=== PATIENT | male | born 1975 | race Caucasian/White ===

== ENCOUNTER 2021-08-04 23:41 | Observation (INO) | payer OTHER, SELFPAY ==
[2021-08-04 23:42] VITALS: BP 125/85; PULSE 87; RESP 20; TEMP 36.4; O2SAT 98; BMI 35.2
[2021-08-05] VITALS (14 sets, daily range): BP systolic 121–147; BP diastolic 78–92; PULSE 64–93; RESP 16–20; TEMP 36.2–36.5; O2SAT 88–98; BMI 33.0
--- NOTE | 2021-08-05 | GALL_PTH ---
PATIENT: CHATA WEIR LOC: MS2 U#:[id number] AGE/SX: 46/M ROOM: [facility] [place] RE08/05/[address]: Dr. Guevara Aguilar MD : 1975 BED: 1 DIS: 08/05/2021 SPEC #: [id number] RECD: 08/06/21 10:31 STATUS: MELISSA YANG #: [id number] JOANN: 08/05/21 00:[address]: Guevara Aguilar DEPT: SURGICAL PATHOLOGY RECD BY: Isaac Neal ENTERED: 08/06/21 10:31 SP TYPE: DORIAN SHIELDS DR: No Primary Care Phys Tissues: Gallbladder, NOS Procedures: Surgery Specimen Level III HEADER OPERATION: Laparoscopic cholecystectomy with IOC PRE-OP DIAGNOSIS: Acute cholecystitis TISSUE SUBMITTED: Gallbladder MICROSCOPIC DIAGNOSIS Gallbladder, cholecystectomy: Acute and chronic ulcerated and hemorrhagic cholecystitis and cholelithiasis. A pericystic benign lymph node. SJ:lexie 08/09/2021 MICROSCOPIC DESCRIPTION Slides are reviewed. GROSS DESCRIPTION Received is one container labeled with the patient's name and designated gallbladder. The specimen consists of a gallbladder measuring 11.5 cm in length and 5 cm in diameter. The external surface is pink-mora, smooth and glistening for the most part. Focally it is granular, hemorrhagic and contains cautery artifact. The gallbladder contains a small amount of hemorrhagic mora-yellow mucoid bile and two large ovoid, brown to black stones measuring 3.5 and 2.5 cm in greatest dimension. A few irregular black stones are also noted measuring in aggregate 1 x 1 x 0.2 cm. The mucosa is congested and hemorrhagic. Section of gallbladder wall reveals edematous cut surfaces and it measures up to 1.2 cm in thickness. Also present close to the cystic duct is an ovoid, mora nodule consistent with lymph node measuring 1.5 cm in greatest dimension. Transmitter Chief sections from the gallbladder and the cystic duct including entire lymph node are submitted in two cassettes. / ROBERT:lexie 08/06/21 TC:2 CPT: 39003
--- NOTE | 2021-08-05 00:45 | CT_ITS ---
STUDY: CT ABDOMEN AND PELVIS WITH CONTRAST REASON FOR EXAM: Male, 46 years old. abd pain RADIATION DOSAGE (If Supplied By Facility): CTDIvol = ( 17.31 ) mGy, DLP = ( 1098.41 ) mGycm TECHNIQUE: Transaxial images were obtained from the dome of the diaphragm to the symphysis pubis without oral contrast. IV 100mL Isovue-300 was administered. Sagittal and coronal images were reconstructed. Individualized dose optimization techniques were used for this CT. COMPARISON: None. FINDINGS: The visualized lung bases are unremarkable. The visualized portions of the heart are within normal limits. Normal liver. Distention of the gallbladder with multiple stones in the gallbladder neck. There is pericholecystic inflammation and edema. Findings are suggestive of acute cholecystitis. Largest stone measuring roughly 3.6 x 3.1 cm. Normal spleen. Normal pancreas. Normal bilateral adrenal glands. Normal right kidney. Normal left kidney. Normal visualized stomach. Normal small intestine. Normal colon. The appendix is visualized and appears normal. Normal abdominal aorta. Normal inferior vena cava. Normal retroperitoneum. Normal urinary bladder. Normal visualized prostate gland. Normal abdominal wall. Normal osseous structures. CT/Abdomen/Pelvis W IV Cont ONLY IMPRESSION: Findings compatible with acute cholecystitis as detailed above. No evidence of colitis or diverticulitis Electronically Signed: Josafat Almanza DO at 1:50 EDT Tel , Service support ,
--- NOTE | 2021-08-05 00:45 | ED.VIS.GI ---
HPI HPI - GI History of Present Illness Chief Complaint: Abd Pain Informant: patient and family Narrative Narrative: Patient presents with abdominal pain for about 3 or 4 days. He has mostly across the lower abdomen. And occasionally feels pressure above that but really stays low. He cannot localize to one side. He came in tonight because he had a bowel movement with blood and then had some blood and clots afterwards. He has not repeated this. He does admit that he has been having blood in bowel movements about every fifth bowel movement for several months. He has not been evaluated for this. There is a family history of colon cancer. Patient also states that he tripped and fell on Monday. It was the next day that the symptoms started with discomfort. He does not recall actually hitting the abdomen though. He did not lose consciousness or hurt himself in this fall. It was a mechanical trip and fall and was not syncope. Past medical history: None Medications: None No known drug allergies No abdominal surgeries Works full-time, is a smoker, rarely has any alcohol. He states he has maybe 2 drinks every 5 or 6 months and has not had anything recently. PFSH PFSH Medical History Asthma Smoker Home Medications NK 08/05/21 [History Last Taken Unknown] Allergy/AdvReac Type Severity Reaction Status Date / Time No Known Allergies Allergy Verified 08/04/21 23:42 Social History Smoking Status: Current every day smoker tobacco type: cigarettes ROS ROS ED Constitutional Constitutional ED: Denies chills or fever(s) ENT ENT ED: Denies rhinorrhea or sore throat Cardiovascular Cardiovascular: Denies chest pain or palpitations Respiratory/Chest Respiratory/Chest: Denies cough or dyspnea Gastrointestinal Gastrointestinal: Reports abdominal pain and other Details: See history of present illness. ; Denies constipation, diarrhea, melena, nausea or vomiting Genitourinary Genitourinary ED: Denies dysuria Musculoskeletal Musculoskeletal: Denies arthralgias or myalgias Integumentary Denies rash Neurologic Neurologic: Denies headache(s), paresthesias or weakness Psychiatric Psychiatric: Denies anxiety or depression Endocrine Endocrinology: Denies polydipsia or polyuria Hematologic/Lymphatic Hematologic/Lymphatic: Denies easy bleeding Allergic/Immunologic Allergic/Immunologic ED: Denies urticaria EXAM Physical Exam Const Vital Signs: 08/04/21 23:42 08/05/21 01:02 08/05/21 03:53 Temperature 97.6 F L Temperature Source Temporal Pulse Rate 87 85 68 Respiratory Rate 20 H 16 16 Blood Pressure 125/85 H 138/80 H 126/91 H Blood Pressure Mean 98 99 102 Pulse Ox 98 97 97 Oxygen Delivery Method Room Air Room Air Room Air Positive well developed General Appearance ED: well developed and NAD; Negative for pallor HEENT Reports moist mucous membranes normocephalic and atraumatic Eyes General Eye ED: Negative for pale conjunctiva or scleral icterus Neck no JVD Resp normal respiratory effort and clear to auscultation bilaterally Resp Narrative: No pain with a deep breath. Auscultation: Negative for rales, rhonchi or wheezes Cardio regular rate, regular rhythm and no murmurs GI non-distended GI Narrative: Abdomen is very minimal lower abdominal tenderness. No rebound or guarding. No masses felt. Auscultation: normoactive bowel sounds Palpation: soft Back/Spine no CVA tenderness Extremity full ROM General Extremety ED: Negative for edema or tenderness General Extremity: Negative for edema Neuro Sensorium / Orientation: alert; Negative for confused or lethargic Psych mental status grossly normal Skin General Skin Exam: Negative for jaundice or pallor Lesions: no lesions Rashes: no rashes MDM MDM MDM Narrative Medical decision making narrative: Patient's blood work showed minimal elevation of his white count. Liver function test lipase electrolytes were essentially normal. Urine was clean. His CAT scan was concerning for acute cholecystitis. I went back and talked to the patient. He states he feels the pain across the mid abdomen and sort of lower but he states sometimes he does get it in the right upper quadrant. He now admits that he does get worse pain up in that area after eating. I pressed firmly in that area and he does have tenderness up there. With light palpation and touching he does not but with firmer palpation he does. I think this patient has 2 issues. He has had blood in his stool off and on for months. But he is never had pain. He now has pain for 4 days that is worse with eating. He has signs of acute cholecystitis on CT. With his 4 days of pain, findings on CT I do not think this is likely to resolve. I discussed the case with surgeon, Dr. Ferguson. Patient will be admitted. I will make him n.p.o. I will give him antibiotics. Lab Data Attestation: I reviewed the patient's lab results. Labs: Laboratory Results - last 24 hr 08/05/21 08/05/21 08/05/21 00:49 00:49 02:08 WBC 11.8 H RBC 4.90 Hgb 15.4 Hct 46.0 MCV 93.9 MCH 31.4 MCHC 33.5 RDW Std Deviation 44.9 H RDW Coeff of Adama 13.0 Plt Count 197 MPV 10.9 Immature Gran % (Auto) 0.300 Neut % (Auto) 73.2 H Lymph % (Auto) 16.1 L Doddridge % (Auto) 6.3 Eos % (Auto) 3.3 Baso % (Auto) 0.8 Absolute Neuts (auto) 8.6 H Absolute Lymphs (auto) 1.90 Nucleated RBC % 0 Sodium 139 Potassium 4.0 Chloride 106 Carbon Dioxide 27.0 Anion Gap 6 BUN 14 Creatinine 0.99 Estim Creat Clear Calc 89.02 Est GFR (MDRD) Af Amer 105 Est GFR (MDRD) Non-Af 87 BUN/Creatinine Ratio 14.1 Glucose 137 H Calcium 8.6 Total Bilirubin 0.30 Direct Bilirubin < 0.05 AST 23 ALT 24 Alkaline Phosphatase 87 Total Protein 7.3 Albumin 3.5 Globulin 3.8 Lipase 30 L Urine Color Yellow Urine Clarity Clear Urine pH 6.5 Ur Specific Cassandra 1.015 Urine Protein Negative Urine Glucose (UA) Normal Urine Ketones Negative Urine Occult Blood Negative Urine Nitrite Negative Urine Bilirubin Negative Urine Urobilinogen 1 H Ur Leukocyte Esterase Negative Urine RBC 0 SEEN Urine WBC 0 SEEN Ur Squamous Epith Cells 0 SEEN Urine Bacteria RARE Urine Mucus 0 SEEN Radiography Diagnostic Testing: Radiology Impression Abdomen/Pelvis CT 08/05/21 00:45 IMPRESSION: Findings compatible with acute cholecystitis as detailed above. No evidence of colitis or diverticulitis Electronically Signed: Josafat Almanza DO at 1:50 EDT Tel , Service support , Discharge Plan Triage Chief Complaint: Abd Pain ED Provider: Saeid Cho Dx/Rx/DC Orders Clinical Impression: Acute cholecystitis, Rectal bleeding Prescriptions: No Action NK RF: 0 Primary Care Provider: Care Physician,No Primary Referrals: Care Physician,No Primary [Primary Care Provider] - Disposition Disposition: Acute Care Hospital [facility]
[2021-08-05 00:57] LABS: Absolute Neutrophil Count 8.6 X10^3/uL (2.0-7.7); Basophil# 0.09 X10^3/uL; Basophil% 0.8 % (0-1); Eosinophil# 0.39 X10^3/uL; Eosinophils% 3.3 % (0-5); Hemoglobin 15.4 g/dL (13.0-16.5); Lymphocyte % 16.1 % (19-41); Mean Corp Hgb Conc 33.5 g/dL (32-36); Mean Corpuscular Hgb 31.4 pg (27.0-32.0); Mean Corpuscular Volume 93.9 fL (80-94); Mean Platelet Vol. 10.9 fl (6.2-12.0); Monocyte# 0.74 X10^3/uL; Monocyte% 6.3 % (0-10); NRBC Flagged by Analyzer 0 % (0-5); Neutrophil # 8.64 X10^3/uL (2.7-7.7); Neutrophil % 73.2 % (47-70); Platelet Count 197 K/mm3 (150-450); RBC Distribution Width SD 44.9 fl (35.1-43.9); White Blood Count 11.8 K/mm3 (4.4-11.0)
[2021-08-05] MEDS: 0.9% Normal Saline 1,000 ML 1000 ML IV (00:59)
[2021-08-05] MEDS: Morphine 4 MG/ML Syringe IV ×3 (00:59→17:18)
[2021-08-05 01:15] LABS: AST(SGOT) 23 U/L (15-37); Alanine Aminotransfer ALT/SGPT 24 U/L (16-61); Albumin, Serum 3.5 g/dL (3.2-5.0); Alkaline Phosphatase 87 U/L (45-117); Anion Gap 6 (5-15); BUN 14 mg/dL (7-18); BUN/Creat Ratio 14.1 RATIO (10-20); Bilirubin, Direct < 0.05 mg/dL (0.00-0.30); Calcium,Total 8.6 mg/dL (8.5-10.1); Chloride 106 mmol/L (98-107); Creatinine, Serum 0.99 mg/dL (0.70-1.30); EST Glomerular Filtration Rate 87 mL/min (>60); Est Glom Filt Rate - Afr Amer 105 mL/min (>60); Estimated Creatinine Clearance 89.02 ml/min; Globulin 3.8 g/dL (2.2-4.2); Glucose 137 mg/dL (74-106); Lipase 30 U/L (73-393); Protein, Total 7.3 g/dL (6.4-8.2); Sodium Level 139 mmol/L (136-145)
[2021-08-05 02:17] LABS: Mucous, Urine 0 SEEN /hpf (<or=2+); Red Blood Cells-Urine 0 SEEN /hpf (0-5); Squamous Epithelial Cells - UA 0 SEEN /hpf (0-5); White Blood Cells 0 SEEN /hpf (0-5)
[2021-08-05 02:18] LABS: Color, Urine Yellow (Yellow); Glucose, Dipstick Normal (Normal); Ketone-Dipstick Negative (Negative); Leukocyte Esterase-Dipstick Negative /ul (Negative); Nitrite-Dipstick Negative (Negative); Occult Blood-Urine Negative /ul (Negative); Protein-Dipstick Negative (Negative); Specific Gravity, Urine 1.015 (1.002-1.030); Urine Bilirubin Dipstick Negative (Negative); Urine Clarity Clear (Clear); Urine Urobilinogen 1 mg/dl (Normal); Urine pH 6.5 (5.0 - 8.0)
[2021-08-05 02:25] LABS: Bacteria RARE /hpf (None Seen)
[2021-08-05] MEDS: 0.9% Normal Saline 1,000 ML 100 ML IV ×2 (05:20→17:07)
--- NOTE | 2021-08-05 05:28 | PCS.PANDOC ---
PANDEMIC DOCUMENTATION INITIATED: Date: 08/05/2021 Time:
--- NOTE | 2021-08-05 07:46 | PCM.HP.STD ---
HPI - General General Date of Admission: 08/05/21 HPI Narrative CHATA WEIR, is a 46 M who presents with epigastric and right upper quadrant pain. The. She reports this pain has been going on for 4 days. Patient did have some nausea but no vomiting. No fevers or chills. Patient reports he had an episode of this last month as well. PFSH Medical History Asthma Asthma GERD (gastroesophageal reflux disease) GI bleed Restless legs Smoker Home Medications NK 08/05/21 [History Last Taken Unknown] Allergy/AdvReac Type Severity Reaction Status Date / Time No Known Allergies Allergy Verified 08/04/21 23:42 Social History Smoking Status: Current every day smoker tobacco type: cigarettes ROS Constitutional Constitutional: Denies anorexia or fever(s) Eyes Eyes: Denies blurry vision ENT HEENT: Denies abnormal hearing Cardiovascular Cardiovascular: Denies chest pain Respiratory/Chest Respiratory/Chest: Denies cough Gastrointestinal Gastrointestinal: Reports abdominal pain and nausea; Denies constipation, diarrhea or vomiting Genitourinary Genitourinary: Denies change in urinary stream Musculoskeletal Musculoskeletal: Denies abnormal gait Integumentary Integumentary: Denies jaundice Neurologic Neurologic: Denies abnormal gait Psychiatric Psychiatric: Denies anxiety Endocrine Endocrinology: Denies flushing Vital Signs Vital Signs Vital Signs: 08/04/21 23:42 08/05/21 01:02 08/05/21 03:53 Temperature 97.6 F L Temperature Source Temporal Pulse Rate 87 85 68 Respiratory Rate 20 H 16 16 Blood Pressure 125/85 H 138/80 H 126/91 H Blood Pressure Mean 98 99 102 Blood Pressure Source Blood Pressure Position Blood Pressure Location Pulse Ox 98 97 97 Oxygen Delivery Method Room Air Room Air Room Air 08/05/21 04:50 08/05/21 05:33 Temperature 97.6 F L 97.6 F L Temperature Source Temporal Temporal Pulse Rate 68 82 Respiratory Rate 16 18 Blood Pressure 126/91 H 137/87 H Blood Pressure Mean 102 103 Blood Pressure Source Monitor Blood Pressure Position Semi-Fowlers Blood Pressure Location Right Arm Pulse Ox 97 96 Oxygen Delivery Method Room Air Room Air Weight Weight: 211 lb Body Mass Index (BMI) 33.0 Physical Exam Const oriented x3 and no apparent distress Resp normal respiratory effort Cardio regular rate and regular rhythm GI soft to palpation Inspection: Negative for abdominal distention Palpation: tender RUQ and Martinez's sign Results Lab / Micro Data Result Diagrams: 08/05/21 00:49 08/05/21 00:49 Labs: Laboratory Results - last 24 hr 08/05/21 00:49: WBC 11.8 H, RBC 4.90, Hgb 15.4, Hct 46.0, MCV 93.9, MCH 31.4, MCHC 33.5, RDW Std Deviation 44.9 H, RDW Coeff of Adama 13.0, Plt Count 197, MPV 10.9, Immature Gran % (Auto) 0.300, Neut % (Auto) 73.2 H, Lymph % (Auto) 16.1 L, Winston % (Auto) 6.3, Eos % (Auto) 3.3, Baso % (Auto) 0.8, Absolute Neuts (auto) 8.6 H, Absolute Lymphs (auto) 1.90, Nucleated RBC % 0 08/05/21 00:49: Sodium 139, Potassium 4.0, Chloride 106, Carbon Dioxide 27.0, Anion Gap 6, BUN 14, Creatinine 0.99, Estim Creat Clear Calc 89.02, Est GFR (MDRD) Af Amer 105, Est GFR (MDRD) Non-Af 87, BUN/Creatinine Ratio 14.1, Glucose 137 H, Calcium 8.6, Total Bilirubin 0.30, Direct Bilirubin < 0.05, AST 23, ALT 24, Alkaline Phosphatase 87, Total Protein 7.3, Albumin 3.5, Globulin 3.8, Lipase 30 L 08/05/21 02:08: Urine Color Yellow, Urine Clarity Clear, Urine pH 6.5, Ur Specific Rowlett 1.015, Urine Protein Negative, Urine Glucose (UA) Normal, Urine Ketones Negative, Urine Occult Blood Negative, Urine Nitrite Negative, Urine Bilirubin Negative, Urine Urobilinogen 1 H, Ur Leukocyte Esterase Negative, Urine RBC 0 SEEN, Urine WBC 0 SEEN, Ur Squamous Epith Cells 0 SEEN, Urine Bacteria RARE, Urine Mucus 0 SEEN Micro: Microbiology 08/05/21 04:18 Nasal Secretion SARS-CoV-2 Antigen (Rapid) - Final Radiology Impression Abdomen/Pelvis CT 08/05/21 00:45 IMPRESSION: Findings compatible with acute cholecystitis as detailed above. No evidence of colitis or diverticulitis Electronically Signed: Josafat Almanza DO at 1:50 EDT Tel , Service support , Assessment & Plan Assessment/Plan (1) Acute cholecystitis: PLAN: Patient has acute cholecystitis with 2 very large gallstones in the gallbladder. I discussed laparoscopic cholecystectomy with him. I discussed the procedure in detail with the patient. I discussed the risks, benefits, and alternatives of the procedure. I discussed the risks including but not limited to bleeding, infection, injury to surrounding organs such as the liver, bile duct, bowels. I did discuss the possibility of having to convert to an open procedure as well as the possibility that if any injuries occurred this may necessitate further surgery at a tertiary care center. I also discussed the increased risk of injury and need for partial cholecystectomy due to the very large gallstones that he has in his gallbladder. I explained the risk of subsequent need for ERCP if a partial cholecystectomy was performed and I also discussed conversion to open surgery. Patient would like to proceed with surgery. Guevara Aguilar MD Pager: [facility] [address] [place] [address], [address] [place] [address] Office:
--- NOTE | 2021-08-05 08:29 | EKG12_ITS ---
Test Reason : PRE OP Blood Pressure : / mmHG Vent. Rate : 056 BPM Atrial Rate : 056 BPM P-R Int : 140 ms QRS Dur : 078 ms QT Int : 408 ms P-R-T Axes : 051 040 052 degrees QTc Int : 393 ms Sinus bradycardia Otherwise normal ECG Confirmed by AHMET PRABHAKAR, BEVERLY ([id number]), book editor ANKUR PALUMBO ([id number]) on 08/10/2021 10:12:03 AM Referred By: YANETH Confirmed By:BEVERLY LEO MD
[2021-08-05] MEDS: Lactated Ringers 1,000 ML 100 ML IV (13:35)
--- NOTE | 2021-08-05 13:45 | RAD_ITS ---
CLINICAL HISTORY: Male, 46 years old. Acute cholecystitis. PROCEDURE: CHOLANGIOGRAM - intraoperative FLUOROSCOPY TIME (if supplied): Not provided TECHNIQUE: Fluoroscopic guidance was provided during an intraoperative cholangiogram. 5 procedural images were performed. The study demonstrates laparoscopic surgical device is in overlying the right upper quadrant. Subsequent images demonstrate a intraoperative cholangiogram without stricture filling defect or cyst dilatation. There is free spillage of contrast into the duodenum. Please refer to the operative report for further details. RAD/Cholangiogram/ O R,Initial IMPRESSION: Intraoperative cholangiogram, as above. Electronically Signed: Linden Lisa DO at 16:13 EDT Tel [phone], Service support ,
[2021-08-05] MEDS: Bupivacaine Mpf 0.5% 30 ML VIAL (14:30)
--- NOTE | 2021-08-05 14:42 | OP.PCM_ITS ---
Problems Associated Problem List Diagnoses (1) Acute cholecystitis: Report of Operation Date of Procedure: 08/05/21 Pre-Operative Diagnosis: Acute cholecystitis Post-Operative Diagnosis: Same Surgery/Procedure Performed:: Laparoscopic cholecystectomy with cholangiogram Specimen's removed: Gallbladder and contents Description of Procedure: After obtaining informed consent patient was brought back to the operating room. General anesthesia was induced. The abdomen was prepped and draped in usual sterile fashion. A small midline incision was made superior to the umbilicus and deepened to the level of fascia. The fascia was elevated and incised. Next the peritoneum was elevated and incised in the same fashion. Finger sweep was performed and the Solomon trocar was placed into the abdomen. The balloon was inflated. The abdomen was inflated to 15 mmHg. Next a camera was introduced into the abdomen and the abdomen was inspected. Next under direct visualization three 5-mm ports were placed one subxiphoid and 2 subcostal. Next the gallbladder was elevated and retracted toward the right shoulder. The gallbladder was severely inflamed. The peritoneum was stripped from the gallbladder. The infundibulum was located and retracted laterally. Next the triangle of Calot was dissected and the cystic duct and cystic artery were identified. Cholangiograms were performed. The Gaspar clamp was used to clamp across the infundibulum and the catheter needle was inserted into the gallbladder. Under fluoroscopy contrast was instilled into the gallbladder and the common duct, cystic duct as well as proximal hepatic ducts were identified. There was good filling of the duodenum. There were no filling defects noted in the common bile duct. The clamp was removed as well as the needle and the infundibulum was grasped once more. Three hemolock clips were placed across the cystic duct. The cystic duct was then divided leaving 2 clips on the stump. The cystic artery was clipped and divided in the same fashion. The hook cautery was then used to take the gallbladder off of the gallbladder bed. Hemostasis was obtained. Gallbladder fossa was irrigated and no active bleeding or bile leakage was noted. Next the camera was introduced in the subxiphoid port. An Endopouch bag was placed through the umbilical port and the gallbladder was parul luciana into it. The gallbladder was then removed through the umbilical incision. The umbilical incision was elongated to allow for removal of the gallbladder. The camera was then reinserted through the umbilical port. The gallbladder fossa was inspected once more and noted to be hemostatic with no leaking bile. The abdomen was suctioned dry. The 5 mm ports were removed under direct visualization. The umbilical port was then removed and the air was removed from the abdomen. Next using an 0 Vicryl suture the umbilical fascia was closed in a [id number] fashion. The umbilical port site was irrigated local anesthetic was administered to all the incisions. All the incisions were closed with interrupted subcuticular 4-0 Monocryl sutures followed by Steri-Strips and dressings. The patient was awoken and taken to PACU in stable condition. Admit VTE Documentation VTE Mechan Device Prophylaxis: SCD's
--- NOTE | 2021-08-05 14:44 | DS.PCM_ITS ---
Providers Date of Admission: 08/05/21 Primary Care Physician: No Primary Care Phys Reason For Visit: ACUTE CHOLECYSTITIS Diagnosis Discharge Diagnosis (1) Acute cholecystitis: Status: Acute Code(s): K81.0 - Acute cholecystitis Medications at Discharge Home Medications oxycodone-acetaminophen [Percocet] 1 tab PO Q4H PRN 5 Days #30 tab 08/05/21 Hospital Course Operations cholecystecomy Procedures None Summary of Care Provided Hospital Course: Patient was admitted with acute cholecystitis. He was kept overnight and following morning he was taken for surgery and had laparoscopic cholecystectomy with cholangiogram. Cholangiograms were normal and the gallbladder was removed successfully. Once the patient was returned to the floor he started on a regular diet and was tolerating a diet was discharged home. Weight / BMI Weight Weight: 211 lb Body Mass Index (BMI) 33.0 ABG / Lab / Microbiology Data Result Diagrams: 08/05/21 00:49 08/05/21 00:49 Laboratory: Laboratory Results - last 24 hr 08/05/21 00:49: WBC 11.8 H, RBC 4.90, Hgb 15.4, Hct 46.0, MCV 93.9, MCH 31.4, MCHC 33.5, RDW Std Deviation 44.9 H, RDW Coeff of [place] 13.0, Plt Count 197, MPV 10.9, Immature Gran % (Auto) 0.300, Neut % (Auto) 73.2 H, Lymph % (Auto) 16.1 L, [place] % (Auto) 6.3, Eos % (Auto) 3.3, Baso % (Auto) 0.8, Absolute Neuts (auto) 8.6 H, Absolute Lymphs (auto) 1.90, Nucleated RBC % 0 08/05/21 00:49: Sodium 139, Potassium 4.0, Chloride 106, Carbon Dioxide 27.0, Anion Gap 6, BUN 14, Creatinine 0.99, Estim Creat Clear Calc 89.02, Est GFR (MDRD) Af Amer 105, Est GFR (MDRD) Non-Af 87, BUN/Creatinine Ratio 14.1, Glucose 137 H, Calcium 8.6, Total Bilirubin 0.30, Direct Bilirubin < 0.05, AST 23, ALT 24, Alkaline Phosphatase 87, Total Protein 7.3, Albumin 3.5, Globulin 3.8, Lipase 30 L 08/05/21 02:08: Urine Color Yellow, Urine Clarity Clear, Urine pH 6.5, Ur Specific [place] 1.015, Urine Protein Negative, Urine Glucose (UA) Normal, Urine Ketones Negative, Urine Occult Blood Negative, Urine Nitrite Negative, Urine Bilirubin Negative, Urine Urobilinogen 1 H, Ur Leukocyte Esterase Negative, Urine RBC 0 SEEN, Urine WBC 0 SEEN, Ur Squamous Epith Cells 0 SEEN, Urine Bacteria RARE, Urine Mucus 0 SEEN Microbiology: Microbiology 08/05/21 04:18 Nasal Secretion SARS-CoV-2 Antigen (Rapid) - Final Radiography Diagnostic Testing: Radiology Impression Abdomen/Pelvis CT 08/05/21 00:45 IMPRESSION: Findings compatible with acute cholecystitis as detailed above. No evidence of colitis or diverticulitis Electronically Signed: Josafat Almanza DO at 1:50 EDT Tel , Service support , D/C Instructions Discharge Diet: Light diet - advance as tolerated Discharge Activity: May Not Drive (for 2-3 days or while taking narcotic pain medications.) and - (Do not drive, work heavy equipment or sign legal documents for 24 hours.) May shower in (days): 1 Lifting Restrictions: 20 lbs for 2 weeks Additional Activity Instructions: Pain medication may cause nausea. You should typically eat light foods as you take your pain medications. Pain medication may also cause constipation. If this is a problem for you, please discuss with your doctor. Call your doctor if your incision/area has: Continuous Slow Oozing, Sudden Increased Bleeding, Increased Pain/ Swelling, Increased Redness and Foul Smelling Discharge Call your doctor if you observe: Fever of 101 or Higher Suture Line Care: Avoid Pulling/Pushing and Avoid Pinching/Bending Remove Dressing in: 2 days Additional Dressing/Incision Instructions: Leave operative bandaids on for 2 days. When you remove dressing, leave Steri-Strips on until your follow-up appointment, or until the Steri-Strips fall off on their own. Please Follow Up With: Guevara Aguilar MD When: Please call to schedule 2 week follow up appointment. [phone] Meaningful Use Info Meaningful Use Diagnoses (Choose all that apply): None applicable Discharge Plan Admission Admit Date/Time: 08/05/21 04:00 Attending Provider: Guevara Aguilar Primary Care Provider: Care Physician,No Primary Discharge Orders/Prescriptions Prescriptions: New oxycodone-acetaminophen [Percocet] 5-325 mg tablet 1 tab PO Q4H PRN (Reason: pain) 5 Days Qty: 30 RF: 0 Referrals / Follow Up: Care Physician,No Primary [Primary Care Provider] -
[2021-08-05] MEDS: 0.9% Saline Lock 10 ML Syringe IV (17:18)
== END 2021-08-05 20:15 | disposition home or self-care (01) ==
LOC: ED 08-05 03:57 → MS2 08-05 07:18
PROVIDERS: Admitting Provider Surgery; Emergency Provider Emergency Medicine; Visit Provider Surgery
PROC: (CPT 47610; principal; 2021-08-05 13:25)
DX: K80.12 Calculus of gallbladder with acute and chronic cholecystitis without obstruction (principal); J45.909 Unspecified asthma, uncomplicated; F17.210 Nicotine dependence, cigarettes, uncomplicated; K21.9 Gastro-esophageal reflux disease without esophagitis; G25.81 Restless legs syndrome
CPT/HCPCS: 00790; 47563; 74177; 74300; 76000; 80048; 80076; 81001; 83690; 85025; 87426; 88304; 93005; 96361; 96365; 96375; 96376; 99218; 99284; J7030; J7050; J7120; Q9967; A4216; G0378; J2405